=== PATIENT | female | born 1955 | race Hispanic/Latino ===

== ENCOUNTER 2016-08-08 19:46 | Emergency (ER) | payer MEDICAID, OTHER ==
[2016-08-08 19:47] VITALS: BMI 28.8
[2016-08-08] MEDS ORDERED: DiphenhydrAMINE 50 mg/ml Inj IVP STA (21:46)
[2016-08-08] MEDS ORDERED: DiphenhydrAMINE 50 mg/ml Inj ONE (21:55)
[2016-08-08 22:02] LABS: BASO % 0.2 % (0.0-2.0); EOS # 0.1 K/uL (0.0-0.7); EOS % 1.8 % (0.0-4.0); HEMATOCRIT 33.4 % (34.0-47.0); LYMPH # 3.9 K/uL (1.0-4.3); LYMPH % 53.1 % (20.0-40.0); MEAN CELL VOLUME 89.7 fL (81.0-99.0); MEAN CORPUSCULAR HEMOGLOBIN 29.6 pg (27.0-31.0); MEAN CORPUSCULAR HGB CONC 33.1 g/dL (33.0-37.0); MEAN PLATELET VOLUME 9.1 fL (7.2-11.7); MONO # 0.7 K/uL (0.0-0.8); MONO % 9.1 % (0.0-10.0); RED CELL DISTRIBUTION WIDTH 14.1 % (11.5-14.5); WHITE BLOOD COUNT 7.3 K/uL (4.8-10.8)
[2016-08-08 22:09] LABS: CHLORIDE 100 mmol/L (98-107); SODIUM 137 mmol/L (132-148)
[2016-08-08 22:10] LABS: POTASSIUM 3.6 mmol/L (3.6-5.2)
[2016-08-08 22:12] LABS: ALB/GLOB RATIO 1.3 (1.0-2.1); ALKALINE PHOSPHATASE 66 U/L (38-126); AST/SGOT 17 U/L (14-36); BILIRUBIN,TOTAL 0.5 mg/dL (0.2-1.3); BLOOD UREA NITROGEN 14 mg/dL (7-17); CARBON DIOXIDE 27 mmol/L (22-30); GFR AFRICAN-AMERICAN > 60; GLUCOSE,RANDOM 96 mg/dL (65-105); TOTAL PROTEIN 6.8 g/dL (6.3-8.3)
[2016-08-08 22:13] LABS: ALT/SGPT 18 U/L (9-52); CALCIUM 8.2 mg/dl (8.6-10.4)
--- NOTE | 2016-08-08 23:34 | C.PDOC ---
Time Seen by Provider: 08/08/16 20:20 Chief Complaint (Nursing): Lower Extremity Problem/Injury History Per: Patient Onset/Duration Of Symptoms: Days (few) Current Symptoms Are (Timing): Still Present Location Of Injury: Right: Ankle, Foot Quality Of Symptoms: Painful, Itching, Swollen. denies: Draining Severity: Moderate Additional History Per: Prior Records Past Medical History Reviewed: Historical Data, Nursing Documentation, Vital Signs Vital Signs: Last Vital Signs Temp 97.3 F L 08/08/16 20:15 Pulse 72 08/08/16 20:15 Resp 22 08/08/16 20:15 BP 142/90 08/08/16 20:15 Pulse Ox 98 08/08/16 20:15 - Medical History PMH: Bipolar Disorder, Depression, Fractures (left leg), Hypercholesterolemia, Seizures (As per Patient) - [facility] Procedures GROUP PSYCHOTHERAPY (02/03/16) INDIVID PSYCHOTHERAP NEC (07/19/14) INDIVIDUAL PSYCHOTHERAPY, COGNITIVE-BEHAVIORAL (02/03/16) INTRODUCTION OF SERUM/TOX/VACCINE INTO MUSCLE, PERC APPROACH (02/03/16) OTHER GROUP THERAPY (07/19/14) PSYCHIAT DRUG THERAP NEC (10/27/12) Family History: States: Unknown Family Hx - Social History Hx Tobacco Use: No (unable to obtain) Hx Alcohol Use: No Hx Substance Use: No - Immunization History Hx Tetanus Toxoid Vaccination: No Hx Influenza Vaccination: No (unable to obtain) Hx Pneumococcal Vaccination: No (unable to obtain) Review Of Systems Except As Marked, All Systems Reviewed And Found Negative. Constitutional: Negative for: Fever, Weakness ENT: Negative for: Mouth Pain, Mouth Swelling, Throat Pain, Throat Swelling Cardiovascular: Negative for: Chest Pain Respiratory: Negative for: Shortness of Breath Gastrointestinal: Negative for: Vomiting, Abdominal Pain Musculoskeletal: Negative for: Neck Pain Skin: Positive for: Rash Neurological: Negative for: Weakness, Numbness, Seizures, Altered Mental Status Physical Exam - Physical Exam Appears: Non-toxic, No Acute Distress Skin: Warm, Dry Head: Atraumatic, Normacephalic Eye(s): bilateral: PERRL, EOMI Throat: Normal Neck: Normal ROM, Supple Cardiovascular: Rhythm Regular Respiratory: Normal Breath Sounds, No Accessory Muscle Use Gastrointestinal/Abdominal: Soft, No Tenderness Back: No CVA Tenderness Extremity: Normal ROM, No Calf Tenderness, Capillary Refill (wnl), Swelling ( right foot/ankle with some erythema) Pulses: Right Dorsalis Pedis: Normal Neurological/Psych: Oriented x3, Normal Motor, Normal Sensation ED Course And Treatment - Laboratory Results Result Diagrams: 08/08/16 21:56 08/08/16 21:56 Lab Interpretation: No Acute Changes O2 Sat by Pulse Oximetry: 98 Pulse Ox Interpretation: Normal - Other Rad Right ankle x-rays X-Ray: Interpreted by Me, Viewed By Me Interpretation: No acute fx or dislocation. Reassessment Condition: Improved Medical Decision Making Medical Decision Making: Arthritis vs. Cellulitis vs. reaction to insect bite? Disposition Counseled Patient/Family Regarding: Studies Performed, Diagnosis, Need For Followup, Rx Given - Disposition Disposition: HOME/ ROUTINE Disposition Time: 23:35 Condition: STABLE Additional Instructions: Rest. Elevate. Follow up with your doctor within 2 days. Return to the ER if you develop fever, redness or swelling are spreading up, worsening of symptoms or if you have any other concerns. Prescriptions: Cephalexin [cephalexin] 500 mg PO QID #40 cap Diphenhydramine HCl/Zinc Acet [Benadryl Itch Stopping Crm] 1 applic TP TID PRN # 1 cream..g. PRN Reason: Itching / Pruritus Naproxen [Naprosyn] 1 tab PO BID PRN #20 tab PRN Reason: Pain Instructions: Swollen Ankle Joint (ED) Forms: General Discharge Instructions - Clinical Impression Clinical Impression: Right ankle swelling
[2016-08-09 00:09] VITALS: BP 102/69; PULSE 95; RESP 16; TEMP 97.2; O2SAT 97
--- NOTE | 2016-08-09 10:18 | RAD ---
PROCEDURE: Right Ankle Radiographs. Soft HISTORY: Swelling COMPARISON: None FINDINGS: BONES: No acute fracture. Plantar and Achilles Tendon insertion calcaneal spurs JOINTS: Normal. No osteoarthritis. Ankle mortise maintained. Talar dome intact SOFT TISSUES: Diffuse soft tissue swelling visualize right lower extremity including distal calf, right ankle and foot. OTHER FINDINGS: None. IMPRESSION: Soft tissue swelling without acute articular or osseous abnormality.
== END 2016-08-09 00:36 | disposition home or self-care (01) ==
LOC: C.ER 19:46
DX: R22.41 Localized swelling, mass and lump, right lower limb (principal)
CPT/HCPCS: 73610; 80053; 85025; 96374; 96375; 99284; J1200; J1885